=== PATIENT | male | born 1985 | race Caucasian/White ===

== ENCOUNTER 2019-01-17 13:02 | Emergency (ER) | payer OTHER ==
[~2019-01-17] VITALS: Ht 180.3 cm; Wt 59.0 kg
[~2019-01-17 13:02] MED LIST: ACETAMINOPHEN-1 EAC1 PO; ATIVAN1 MG PO; AUGMENTIN 875-1 EACH PO; BENADRYL25 MG PO; CIPRO500 MG PO; DOXYCYCLINE 10100 MG PO; FLAGYL500 MG PO; FLEXERIL PO; IBUPROFEN 400400 M1 PO; KEFLEX500 M1 PO; NAPROSYN500 MG PO; NOHOMEMEDICATIONS; NORCO 5-325 TA1 EAC1 PO; ONDANSETRON HCL4 M2 PO; PENICILLIN VK500 M1 PO; PERCOCET 7.5-31 EACH PO; PREDNISONE50 MG PO; PRILOSEC20 MG PO; PROAIR HFA8.5 GM INH; PROTONIX40 M1 PO; REGLAN 10 MG TA10 MG PO; SENNA-DOCUSATE1 EACH PO; ULTRACET TABLET1 TAB PO; ULTRAM 50MG TAB50 MG PO; ZOFRAN ODT4 MG DISSOLVE; ZOFRAN ODT4 MG PO
[2019-01-17 13:12] VITALS: BP 122/73
[2019-01-17] MEDS ORDERED: KEFLEX500 M1 PO (13:42)
[2019-01-17] MEDS ORDERED: TYLENOL WITH CO1 TA1 PO (13:42)
== END 2019-01-17 13:45 | disposition home or self-care (01) ==
LOC: M.ERS 13:02
DX: K02.9 Dental caries, unspecified (principal); R22.0 Localized swelling, mass and lump, head; F17.210 Nicotine dependence, cigarettes, uncomplicated; Z88.6 Allergy status to analgesic agent

== ENCOUNTER 2019-05-11 17:05 | Emergency (ER) | payer OTHER ==
[~2019-05-11] VITALS: Ht 175.3 cm; Wt 59.0 kg
[~2019-05-11 17:05] MED LIST changes: +TYLENOL WITH CO1 TA1 PO
[2019-05-11] MEDS ORDERED: IBUPROFEN 800800 M1 PO (17:35)
[2019-05-11] MEDS ORDERED: PENICILLIN V P500 MG PO (17:35)
[2019-05-11] MEDS ORDERED: NORCO 5-325 TA1 EAC1 PO (17:35)
[2019-05-11 17:42] VITALS: BP 112/78
== END 2019-05-11 17:43 | disposition home or self-care (01) ==
LOC: M.ERS 17:05
DX: K04.7 Periapical abscess without sinus (principal); K02.9 Dental caries, unspecified; F17.210 Nicotine dependence, cigarettes, uncomplicated; Z88.6 Allergy status to analgesic agent